=== PATIENT | female | born 1960 | race Caucasian/White ===

== ENCOUNTER 2016-05-11 16:57 | Emergency (ER) | payer BC ==
[2016-05-11] MEDS ORDERED: Sulfamethox/Trimethoprim DS 800/160* TAB PO ONE (19:27)
[2016-05-11 19:39] VITALS: BP 153/87
--- NOTE | 2016-05-11 19:43 | UC ---
Skin Complaint HPI - HPI Summary HPI Summary: pt presents with c/o tender "sore" on right inner labia - History of Current Complaint Chief Complaint: UCSkin Time Seen by Provider: 05/11/16 18:50 Stated Complaint: PERSONAL Hx Obtained From: Patient ?: No Onset/Duration: Gradual Onset, Lasting Days Skin Exposure Onset/Duration: Days Ago Timing: Constant Onset Severity: Mild Current Severity: Mild Location: Discrete Character: Redness, Raised, Painful Aggravating: Touch Alleviating: Nothing Associated Signs & Symptoms: Positive: Tenderness - Allergy/Home Medications Allergies/Adverse Reactions: Allergies Allergy/AdvReac Type Severity Reaction Status Date / Time C[facility]lor [[facility]] Allergy Rash Verified 05/11/16 18:40 Review of Systems Constitutional: Negative Skin: Other - tenderness, swelling, abscess Eyes: Negative ENT: Negative Respiratory: Negative Cardiovascular: Negative Gastrointestinal: Negative Genitourinary: Negative Motor: Negative Neurovascular: Negative Musculoskeletal: Negative Neurological: Negative Psychological: Negative All Other Systems Reviewed And Are Negative: Yes PMH/Surg Hx/FS Hx/Imm Hx Previously Healthy: Yes - Surgical History Surgical History: Yes Surgery Procedure, Year, and Place: trach as a child - Family History Known Family History: Positive: Cardiac Disease - Social History Lives: With Family Alcohol Use: Rare Substance Use Type: None Smoking Status (MU): Never Smoked Tobacco Physical Exam Triage Information Reviewed: Yes Appearance: Well-Appearing Vital Signs: Initial Vital Signs Temp 98.6 F 05/11/16 18:41 Pulse 74 05/11/16 18:41 Resp 18 05/11/16 18:41 BP 153/87 05/11/16 18:41 Pulse Ox 100 05/11/16 18:41 Eye Exam: Normal ENT Exam: Normal Respiratory Exam: Other Respiratory: Positive: No respiratory distress Abdomen Description: Positive: Other: - small, nickel size abscess with "white head" that is firm and not able to drain. Musculoskeletal Exam: Normal Neurological Exam: Normal Psychological Exam: Normal Skin Exam: Other - abscess right inner labia, nickel size, no drainage, not flucuant, tneder Course/Dx - Differential Diagnoses - Skin Complaint Differential Diagnoses: Abscess, MRSA - Diagnoses Provider Diagnoses: abscess Discharge - Discharge Plan Condition: Stable Disposition: HOME Prescriptions: Sulfamethox/Trimethoprim DS* [Bactrim DS 800/160 TAB*] 1 tab PO Q12H #14 tab Patient Education Materials: Abscess (ED) Referrals: [facility]ICIAN REFERRAL [Outside] No Primary Care Phys,NOPCP [Primary Care Provider] - Additional Instructions: Please follow up with your PCP or return to clinic Addendum entered and electronically signed by Jessica STEIN,Yulia Desir NP 19:45: Addendum Addendum: I spoke to the patient about placing warm pack to the affected area. Additionally, I spoke to the patient about her elevated blood pressure at today' s visit. The patient indicated that she does not like to go to the "doctors' and get very nervous. She states that when she checks her blood pressure at home it is in normal range. Addendum entered and electronically signed by Ron Gan MD 05/18/16 22:11: UC Addendum Addendum: Document reviewed. Addendum entered and electronically signed by Ron Gan MD 05/23/16 11:50: Addendum Addendum: I reviewed the document and agree with the management.
== END 2016-05-11 19:41 | disposition home or self-care (01) ==
LOC: UCCORT 16:57
DX: N76.4 Abscess of vulva (principal); Z88.1 Allergy status to other antibiotic agents
CPT/HCPCS: 99212; A9270-GY; G0463

== ENCOUNTER 2016-06-13 09:21 | Emergency (ER) | payer BC ==
[2016-06-13 11:07] VITALS: BP 145/74
--- NOTE | 2016-06-13 11:53 | UC ---
Skin Complaint HPI - HPI Summary HPI Summary: patient has what she thought were bug bites on the lower right pannus, they are now red and indurated. she did apply a hot compress and the one on the right began to drain. - History of Current Complaint Chief Complaint: UCSkin Time Seen by Provider: 06/13/16 11:34 Stated Complaint: BUG BITES ON ABD Hx Obtained From: Patient ?: No Onset/Duration: Sudden Onset, Lasting Days Skin Exposure Onset/Duration: Days Ago Timing: Constant Onset Severity: Mild Current Severity: Moderate Location: Discrete Character: Swelling, Pruritus, Redness Aggravating: Clothing Alleviating: Nothing - Allergy/Home Medications Allergies/Adverse Reactions: Allergies Allergy/AdvReac Type Severity Reaction Status Date / Time Cefaclor [From [facility]] Allergy Rash Verified 06/13/16 11:04 Home Medications: Home Medications Diphenhydramine-Zinc Acetate [Benadryl Extra Strength 2-0.1 % CREAM] 1 cre EX DAILY PRN 06/13/16 [History Confirmed 06/13/16] Review of Systems Constitutional: Negative Skin: Other - 2 separate areas of induration slightly bigger than a quarter, right one is draining and left on pustule noted Eyes: Negative ENT: Negative Respiratory: Negative Cardiovascular: Negative Gastrointestinal: Negative Genitourinary: Negative Motor: Negative Neurovascular: Negative Musculoskeletal: Negative Neurological: Negative Psychological: Negative All Other Systems Reviewed And Are Negative: Yes PMH/Surg Hx/FS Hx/Imm Hx Previously Healthy: Yes - Surgical History Surgical History: Yes Surgery Procedure, Year, and Place: trach as a child - Family History Known Family History: Positive: Cardiac Disease - Social History Alcohol Use: Occasionally Substance Use Type: None Smoking Status (MU): Never Smoked Tobacco Physical Exam Triage Information Reviewed: Yes Appearance: Well-Appearing, Well-Nourished, Pain Distress Vital Signs: Initial Vital Signs Temp 98.7 F 06/13/16 10:58 Pulse 68 06/13/16 10:58 Resp 12 06/13/16 10:58 BP 145/74 06/13/16 10:58 Pulse Ox 100 06/13/16 10:58 Vital Signs Reviewed: Yes Eye Exam: Normal Eyes: Positive: Conjunctiva Clear ENT Exam: Normal ENT: Positive: Hearing grossly normal, Pharynx normal, TMs normal Dental Exam: Normal Neck exam: Normal Neck: Positive: Supple, Nontender, No Lymphadenopathy Respiratory Exam: Normal Respiratory: Positive: Chest non-tender, Lungs clear, Normal breath sounds Cardiovascular Exam: Normal Cardiovascular: Positive: RRR, No Murmur, Pulses Normal Abdominal Exam: Normal Abdomen Description: Positive: Nontender, No Organomegaly, Soft Bowel Sounds: Positive: Present Musculoskeletal Exam: Normal Musculoskeletal: Positive: Strength Intact, ROM Intact, No Edema Neurological Exam: Normal Neurological: Positive: Alert, Muscle Tone Normal Psychological Exam: Normal Skin: Positive: significant lesion(s) - 2 areas of induration with right one draining, and left on has a pustule Course/Dx - Course Course Of Treatment: hx obtained, exam performed, meds reviewed, talked with patient about i and d, patient would like to apply warm compresses to the area to allow them to drain ABX prescribed. - Differential Diagnoses - Skin Complaint Differential Diagnoses: Abscess, Cellulitis, Contact Dermatitis, Tick Born Illness, Urticaria - Diagnoses Provider Diagnoses: abscess x 2 on abdomen Discharge - Discharge Plan Condition: Stable Disposition: HOME Prescriptions: Sulfamethox/Trimethoprim DS* [Bactrim DS 800/160 TAB*] 1 tab PO BID #14 tab Patient Education Materials: Abscess (ED), Warm Compress or Soak (ED) Additional Instructions: 4-5 hot compresses to the area daily, take the antibiotics as prescribed. Follow up with any increase in pain or redness, keep the area covere and clean especially while draining.
== END 2016-06-13 12:09 | disposition home or self-care (01) ==
LOC: UCCORT 09:21
DX: L02.211 Cutaneous abscess of abdominal wall (principal); Z88.1 Allergy status to other antibiotic agents
CPT/HCPCS: 99212; G0463

== ENCOUNTER 2017-03-25 15:39 | Emergency (ER) | payer BC ==
--- NOTE | 2017-03-25 16:18 | UC ---
Hand/Wrist HPI - History Of Current Complaint Chief Complaint: UCUpperExtremity Stated Complaint: RIGHT THUMB INJURY Time Seen by Provider: 03/25/17 16:17 Pain Intensity: 2 - Allergies/Home Medications Allergies/Adverse Reactions: Allergies Allergy/AdvReac Type Severity Reaction Status Date / Time cefaclor [From [facility]] Allergy Rash Verified 03/25/17 16:03 Home Medications: Home Medications Ibuprofen 400 mg PO 03/25/17 [History] PMH/Surg Hx/FS Hx/Imm Hx - Surgical History Surgical History: Yes Surgery Procedure, Year, and Place: trach as a child - Family History Known Family History: Positive: Cardiac Disease - Social History Alcohol Use: Rare Substance Use Type: None Smoking Status (MU): Never Smoked Tobacco Physical Exam Vital Signs: Initial Vital Signs Temp 98.3 F 03/25/17 15:59 Pulse 85 03/25/17 15:59 Resp 18 03/25/17 15:59 BP 169/79 03/25/17 15:59 Pulse Ox 100 03/25/17 15:59 Discharge - Discharge Plan Referrals: Ofelia Barillas PA [Primary Care Provider] -
[2017-03-25] MEDS ORDERED: Ibuprofen TAB* 200 MG PO ONE (16:24)
--- NOTE | 2017-03-25 16:28 | RAD ---
HISTORY: Pain with extension, repetitive work COMPARISONS: None VIEWS: 3, Frontal, lateral, and oblique views of the first digit of the right hand FINDINGS: BONE DENSITY: Normal. BONES: There is no displaced fracture. JOINTS: There is osteoarthritis of the first CMC, MCP, and interphalangeal joint. ALIGNMENT: There is no dislocation. SOFT TISSUES: Unremarkable. OTHER FINDINGS: None. IMPRESSION: OSTEOARTHRITIS. NO ACUTE OSSEOUS INJURY. IF SYMPTOMS PERSIST, RECOMMEND REPEAT IMAGING.
--- NOTE | 2017-03-25 16:31 | UC ---
Hand/Wrist HPI - HPI Summary HPI Summary: pt presents with 3-4 weeks right thumb pain. 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 Pt states most sx improved, but continues to have pain in thumb. Pt states at time ip joint gets "stuck" in flexion and has to "force" it straight. Pt states feels stiff. Occasional pain in thenar eminence. no direct trauma. Pt without past h/o of thumb surgery. No relief with ice. No elbow or wrist pain. mild relief with Motrin. None today Pt's medications reviewed this visit - History Of Current Complaint Chief Complaint: UCUpperExtremity Stated Complaint: RIGHT THUMB INJURY Time Seen by Provider: 03/25/17 16:17 Hx Obtained From: Patient ?: No - post men Onset/Duration: Gradual Onset Severity Initially: Mild Severity Currently: Mild Pain Intensity: 2 Pain Scale Used: 0-10 Numeric Character Of Pain: Spasmodic, Stiffness Aggravating Factor(s): Movement, Flexion Alleviating Factor(s): Rest Associated Signs And Symptoms: Negative: Weakness, Numbness/Tingling - Allergies/Home Medications Allergies/Adverse Reactions: Allergies Allergy/AdvReac Type Severity Reaction Status Date / Time cefaclor [From [facility]] Allergy Rash Verified 03/25/17 16:03 Home Medications: Home Medications Ibuprofen 400 mg PO 03/25/17 [History] PMH/Surg Hx/FS Hx/Imm Hx Previously Healthy: Yes - Surgical History Surgical History: Yes Surgery Procedure, Year, and Place: trach as a child - Family History Known Family History: Positive: Cardiac Disease - Social History Occupation: Employed Full-time Lives: With Family Alcohol Use: Rare Substance Use Type: None Smoking Status (MU): Never Smoked Tobacco Review of Systems Constitutional: Negative Skin: Negative Motor: Other - right thumb pain IP joint All Other Systems Reviewed And Are Negative: Yes Physical Exam Triage Information Reviewed: Yes Appearance: Well-Appearing, No Pain Distress, Well-Nourished Vital Signs: Initial Vital Signs Temp 98.3 F 03/25/17 15:59 Pulse 85 03/25/17 15:59 Resp 18 03/25/17 15:59 BP 169/79 03/25/17 15:59 Pulse Ox 100 03/25/17 15:59 Vital Signs Reviewed: Yes ENT: Positive: Hearing grossly normal Neck: Positive: Supple Respiratory: Positive: No respiratory distress, No accessory muscle use Cardiovascular: Positive: Other: - 2+ radial, 2+ ulnar CBT < 2 sec Musculoskeletal: Positive: Other: - + flex/ext elbow + pronate/supinate + flex/ ext wrist + discomfort wtih palpation thenar eminence and lateral aspect of IP joint + discomfot with opponens and any attempt at flexion of IP mild discomfort MCP joint no edema, no ecchymosis Neurological: Positive: Other: - + gross sensation throughout Psychological Exam: Normal Skin Exam: Normal Diagnostics - Radiology No standard instances Radiology Interpretation Completed By: Radiologist - Attending Doctor: Priscilla Bennett ([facility]) Bacon Stringer: Cisco Finley ([id number]) Conveyor Attendant: NUANCE (NUANCE) Report Date: 03/25/2017 16:06:00 Report Status: Final Begin of Report Content Patient Name: NATALIE SEQUEIRA Medical Record#: [id number] Ordering Physician: Carmella Bro MD Acct.#: [id number] : 1960 Age: 56 Sex: F Location: [facility] Exam Date: 03/25/17 1606 ADM Status: PRE ER Order Information: THUMB RIGHT Accession Number: [id number] CPT: 68716 HISTORY : Pain with extension, repetitive work COMPARISONS: None VIEWS: 3, Frontal, lateral, and oblique views of the first digit of the right hand FINDINGS: BONE DENSITY: Normal. BONES: There is no displaced fracture. JOINTS: There is osteoarthritis of the first CMC, MCP, and interphalangeal joint. ALIGNMENT: There is no dislocation. SOFT TISSUES: Unremarkable. OTHER FINDINGS: None. IMPRESSION: OSTEOARTHRITIS. NO ACUTE OSSEOUS INJURY. IF SYMPTOMS PERSIST, RECOMMEND REPEAT IMAGING. <Electronically signed by Cisco Finley MD in OV> 03/25/171623 Dictated By: Cisco Finley MD Dictated Date/Time: 03/25/171623 Transcribed Date/Time: 03/25/171623 Copy to: Hand/Wrist Course/Dx - Course Course Of Treatment: Pt with discomfort right thumb with flexion and along IP joint. Pt states gets "stuck" in flexion at IP. will check xray. thumb spica. analgesia. ortho-hand. pt comfortable and in agreement with plan - Differential Dx/Diagnosis Provider Diagnoses: right thumb pain Discharge - Discharge Plan Condition: Stable Disposition: HOME Patient Education Materials: Trigger Finger (ED) Forms: *Gen. Provider Communication Referrals: Ofelia Barillas PA [Primary Care Provider] - Additional Instructions: -wear splint for comfort and support as much as possible - alternate ibuprofen (Advil, Motrin) 600mg and tylenol every 3 hours for pain. Take with food. do NOT take for more than 4-5 days - Contact the orthopedic office to schedule a follow-up appointment with the hand specialist - avoid repetition over use or trauma to your thumb
[2017-03-25 16:51] VITALS: BP 169/79
== END 2017-03-25 16:46 | disposition home or self-care (01) ==
LOC: UCCORT 15:39
DX: M79.644 Pain in right finger(s) (principal); W19.XXXA Unspecified fall, initial encounter; Y93.9 Activity, unspecified; Y92.9 Unspecified place or not applicable; Y99.9 Unspecified external cause status
CPT/HCPCS: 99213; A9270-GY; G0463

== ENCOUNTER 2017-06-24 16:08 | Emergency (ER) | payer BC ==
--- NOTE | 2017-06-24 16:21 | UC ---
Skin Complaint HPI - HPI Summary HPI Summary: 56 yo WF presents with rash to back of lower legs noticed 2 days ago. She tells me that 3 days ago she was walking on her property ([place] area[place] and sitting on her front steps. Later that night noticed some burning sensations to the back of her legs. The next day developed a red rash. Yesterday started blistering. Has been taking benadryl with moderate relief. - History of Current Complaint Time Seen by Provider: 06/24/17 16:21 Stated Complaint: SKIN COMPLAINT Hx Obtained From: Patient Onset/Duration: Gradual Onset Onset Severity: Mild Current Severity: Mild Pain Intensity: 3 Pain Scale Used: 0-10 Numeric - Allergy/Home Medications Allergies/Adverse Reactions: Allergies Allergy/AdvReac Type Severity Reaction Status Date / Time cefaclor [From [facility]] Allergy Rash Verified 06/24/17 16:23 Review of Systems Constitutional: Negative Skin: Rash Respiratory: Negative Cardiovascular: Negative Neurovascular: Negative Musculoskeletal: Negative Neurological: Negative Psychological: Negative All Other Systems Reviewed And Are Negative: Yes PMH/Surg Hx/FS Hx/Imm Hx - Additional Past Medical History Additional PMH: None Previously Healthy: Yes - Surgical History Surgical History: Yes Surgery Procedure, Year, and Place: trach as a child - Family History Known Family History: Positive: Cardiac Disease - Social History Occupation: Employed Full-time Lives: With Family Alcohol Use: Rare Substance Use Type: None Smoking Status (MU): Never Smoked Tobacco Physical Exam - Summary Physical Exam Summary: GENERAL: NAD. WDWN. No pain distress. SKIN: B/L lower calves: ~5.0cm areas of moderate erythema and scattered blisters 1-5mm in size. Mild TTP. No streaking, drainage, bleeding, or open sores. NECK: Supple. Nontender. No lymphadenopathy. CHEST: No accessory muscle use. Breathing comfortably and in no distress. CV: RRR. Without m/r/g. NEURO: Alert. CN II-XII grossly intact. PSYCH: Age appropriate behavior. Triage Information Reviewed: Yes Course/Dx - Course Course Of Treatment: Suspect poison soco vs contact dermatitis. Continue with benadryl. Rx for steroid cream and short course of po prednisone. - Diagnoses Provider Diagnoses: Poison soco lower legs Discharge - Sign-Out/Discharge Documenting (check all that apply): Discharge/Admit/Transfer - Discharge Plan Condition: Stable Disposition: HOME Prescriptions: predniSONE TAB* [Deltasone TAB*] 50 mg PO DAILY #5 tab Triamcinolone 0.1% CREAM(NF) [Kenalog Cream 0.1%(NF)] 1 applic TOPICAL BID #1 tube Patient Education Materials: Poison Soco (ED) Forms: *Work Release Referrals: No Primary Care Phys,NOPCP [Primary Care Provider] - Additional Instructions: If you develop a fever, shortness of breath, chest pain, new or worsening symptoms - please call your PCP or go to the ED. Your blood pressure was high at todays visit. Please see your primary provider within 4 weeks for recheck and re-evaluation. 1) Please take daily benadryl to help with the itching and swelling - Billing Disposition and Condition Condition: STABLE Disposition: HOME
[2017-06-24 16:26] VITALS: BP 160/83
== END 2017-06-24 16:49 | disposition home or self-care (01) ==
LOC: UCCORT 16:08
DX: L23.7 Allergic contact dermatitis due to plants, except food (principal); Z88.3 Allergy status to other anti-infective agents
CPT/HCPCS: 99212; G0463

== ENCOUNTER 2017-10-11 20:11 | Emergency (ER) | payer BC ==
[2017-10-11 20:31] VITALS: BP 161/85
--- NOTE | 2017-10-11 20:34 | UC ---
Upper Extremity HPI - HPI Summary HPI Summary: 56 year old female presents with right hand pain, swelling, and bruising s/p fall last night. States she was carrying her grandson and tripped on his walker falling forward into the play swing. She is not exactly sure the mechanism of injury as she was concentrating on keeping her grandson for being injured. Reports decreased ROM d/t swelling. Denies numbness or tingling. - History of Current Complaint Stated Complaint: RIGHT HAND INJURY S/P FALL Time Seen by Provider: 10/11/17 20:25 Hx Obtained From: Patient ?: No Onset/Duration: Sudden Onset Severity Initially: Mild Severity Currently: Mild Location Of Pain: Is Discrete @ - right ring finger and over 4th metacarpal Character: Throbbing Aggravating Factor(s): Movement, Lifting Alleviating Factor(s): Ice, OTC Meds Associated Signs And Symptoms: Positive: Swelling, Bruising. Negative: Redness , Weakness, Numbness/Tingling - Allergies/Home Medications Allergies/Adverse Reactions: Allergies Allergy/AdvReac Type Severity Reaction Status Date / Time cefaclor [From [facility]] Allergy Rash Verified 10/11/17 20:24 Home Medications: Home Medications Ibuprofen [Motrin Ib] 400 mg PO Q6H PRN 10/11/17 [History Confirmed 10/11/17] PMH/Surg Hx/FS Hx/Imm Hx Endocrine History: Diabetes - Reports possible pre-diabetes - Surgical History Surgical History: Yes Surgery Procedure, Year, and Place: trach as a child - Family History Known Family History: Positive: Cardiac Disease - Social History Occupation: Employed Full-time Lives: With Family Alcohol Use: Rare Substance Use Type: None Smoking Status (MU): Never Smoked Tobacco Review of Systems Constitutional: Negative Skin: Bruising Motor: Decreased ROM - d/t swelling Neurovascular: Negative Musculoskeletal: Edema, Other: - pain right hand Is Patient Immunocompromised?: No All Other Systems Reviewed And Are Negative: Yes Physical Exam Triage Information Reviewed: Yes Appearance: Well-Appearing, No Pain Distress, Obese Vital Signs Reviewed: Yes Respiratory: Positive: No respiratory distress Cardiovascular: Positive: Pulses Normal, Brisk Capillary Refill Musculoskeletal: Positive: ROM Limited @ - Righ ring and little fingers d/t swelling, Edema @ - Right ring and little finger, dorsal right hand, Other: - Tenderness over the proximal phalanx right ring finger. No crepitus or obvious deformity. Neurological: Positive: Alert, Other: - Sensation intact distally Skin: Positive: Other - Ecchymosis to dorsal and palmar aspect of the lateral right hand, ring finger especially at the PIP. Procedures - Splinting Right Upper Extremity Hand-Made Type: orthoglass Splint: ulnar - gutter Pre-Proc Neuro Vasc Exam: normal Post-Proc Neuro Vasc Exam: normal Diagnostics - Radiology No standard instances Xray Interpretation: Positive (See Comments) - Preliminary reading by myself and reviewed with Dr. Eaton. Non-displaced oblique fracture of proximal phalanx right ring finger. Radiology Interpretation Completed By: ED Physician Upper Extremity Course/Dx - Course Course Of Treatment: 56 year old female with right hand pain, swelling, and ecchymosis s/p fall. Tenderness over proximal phalanx right ring finger with notable ecchymosis especially at PIP. Preliminary reading of right hand X-ray by myself is non-displaced oblique fracture of the proximal phalanx right ring finger. X-ray reviewed with Dr. Eaton who agrees with reading. Patient was placed in ulnar gutter splint using Orthoglass and EMILY wrap. Recommend routine ortho care including rest, ice, and elevation. OTC analgesics for pain control. Referral made to Dr. Flores, orthopedic surgery, for follow up as patient requests to stay locally. Warning symptoms reviewed that would require immediate medical attention. Verbalizes understanding and agrees with POC. - Differential Dx/Diagnosis Differential Diagnosis/HQI/PQRI: Contusion, Fracture (Closed), Strain Provider Diagnoses: Non-displaced oblique fracture of proximal phalanx right ring finger, elevated blood pressure reading Discharge - Sign-Out/Discharge Documenting (check all that apply): Patient Departure All imaging exams completed and their final reports reviewed: No - Discharge Plan Condition: Stable Disposition: HOME Patient Education Materials: Finger Fracture (ED) Forms: *Work Release Referrals: No Primary Care Phys,NOPCP [Primary Care Provider] - Matt Flores MD [Medical Doctor] - 3 Days (Call Friday for follow up appointment.) Additional Instructions: Your X-ray in the clinic today looks suspicious for an non-displaced oblique fracture of the first bone of the ring finger. The X-ray will be reviewed by radiology tomorrow and we will contact you if there is a finding that will change your treatment plan. Leave the splint in place at all times. Be sure to keep it dry. Rest the hand as much as possible. You can do basic activities but you should avoid any heavy lift or strenuous activities. Apply ice for 15-20 minutes 3-4 times a day for next couple of days. Keep the arm elevated at the level of your heart to help reduce swelling. Use over the counter acetaminophen (Tylenol) or ibuprofen (Advil, Motrin) according to directions as needed for pain. Call Dr. Flores, orthopedic surgery, on Friday to schedule follow up. Seek immediate medical attention if you have increased pain not controlled by pain medications, develop any numbness or tingling, the hand/finger becomes pale or blue in color, or any worsening of symptoms. Your blood pressure in the clinic today was elevated. You should schedule an appointment with your primary care provider within the next week to have this rechecked. - Billing Disposition and Condition Condition: STABLE Disposition: Home
--- NOTE | 2017-10-12 12:33 | RAD ---
INDICATION: Pain and swelling at the third and fourth metacarpal bones after a fall COMPARISON: None. TECHNIQUE: 4 views of the right hand were obtained. FINDINGS: The adequately corticated bones are in normal alignment. No significant focal osseous abnormality or fracture is seen. Joint spaces appear maintained. IMPRESSION: No radiographically apparent fracture or dislocation is identified. If the patient's symptoms persist, follow-up imaging is recommended. R2
--- NOTE | 2017-10-12 13:16 | UC ---
Discharge - Sign-Out/Discharge Documenting (check all that apply): Post-Discharge Follow Up All imaging exams completed and their final reports reviewed: Yes - Discharge Plan Condition: Stable Disposition: HOME Patient Education Materials: Finger Fracture (ED) Forms: *Work Release Referrals: Matt Flores MD [Medical Doctor] - 3 Days (Call Friday for follow up appointment.) No Primary Care Phys,NOPCP [Primary Care Provider] - Additional Instructions: Your X-ray in the clinic today looks suspicious for an non-displaced oblique fracture of the first bone of the ring finger. The X-ray will be reviewed by radiology tomorrow and we will contact you if there is a finding that will change your treatment plan. Leave the splint in place at all times. Be sure to keep it dry. Rest the hand as much as possible. You can do basic activities but you should avoid any heavy lift or strenuous activities. Apply ice for 15-20 minutes 3-4 times a day for next couple of days. Keep the arm elevated at the level of your heart to help reduce swelling. Use over the counter acetaminophen (Tylenol) or ibuprofen (Advil, Motrin) according to directions as needed for pain. Call Dr. Flores, orthopedic surgery, on Friday to schedule follow up. Seek immediate medical attention if you have increased pain not controlled by pain medications, develop any numbness or tingling, the hand/finger becomes pale or blue in color, or any worsening of symptoms. Your blood pressure in the clinic today was elevated. You should schedule an appointment with your primary care provider within the next week to have this rechecked. - Billing Disposition and Condition Condition: STABLE Disposition: Home
== END 2017-10-11 21:26 | disposition home or self-care (01) ==
LOC: UCCORT 20:11
DX: S62.644A Nondisplaced fracture of proximal phalanx of right ring finger, initial encounter for closed fracture (principal); W18.09XA Striking against other object with subsequent fall, initial encounter; Y93.01 Activity, walking, marching and hiking; Y92.009 Unspecified place in unspecified non-institutional (private) residence as the place of occurrence of the external cause; Z88.1 Allergy status to other antibiotic agents; E11.9 Type 2 diabetes mellitus without complications; R03.0 Elevated blood-pressure reading, without diagnosis of hypertension
CPT/HCPCS: 26720; 99211; G0463

== ENCOUNTER 2018-04-27 17:42 | Emergency (ER) | payer BC ==
[2018-04-27 18:30] VITALS: BP 167/96
--- NOTE | 2018-04-27 18:52 | UC ---
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 - History of Current Complaint Chief Complaint: U[employer]kin Time Seen by Provider: 04/27/18 18:29 Stated Complaint: SKIN CONCERN Hx Obtained From: Patient ?: No Onset/Duration: Sudden Onset Skin Exposure Onset/Duration: Days Ago - Last evening had exposure to bedbugs Timing: Constant Onset Severity: Moderate Current Severity: Moderate Pain Intensity: 7 Location: Diffuse, Other - 4 spots on her right forearm. Character: Pruritus, Redness, Raised, Painful Aggravating Factor(s): Other - Bedbugs Alleviating Factor(s): Antihistamines - Patient took Benadryl however without to much improvement. Associated Signs & Symptoms: Positive: Negative Related History: Insect Bite/Sting - Allergy/Home Medications Allergies/Adverse Reactions: Allergies Allergy/AdvReac Type Severity Reaction Status Date / Time cefaclor [From [facility]] Allergy Rash Verified 04/27/18 18:23 Home Medications: Home Medications diphenhydrAMINE HCl [Benadryl Allergy 25 MG CAP] 25 mg PO Q6H PRN 04/27/18 [ History Confirmed 04/27/18] PMH/Surg Hx/FS Hx/Imm Hx Previously Healthy: Yes - Surgical History Surgical History: Yes Surgery Procedure, Year, and Place: trach as a child - Family History Known Family History: Positive: Cardiac Disease - Social History Alcohol Use: Rare Substance Use Type: None Smoking Status (MU): Never Smoked Tobacco Review of Systems All Other Systems Reviewed And Are Negative: Yes Constitutional: Positive: Negative Skin: Positive: Other - For bug bites to her right lower forearm Eyes: Positive: Negative Respiratory: Positive: Negative Cardiovascular: Positive: Negative Gastrointestinal: Positive: Negative Genitourinary: Positive: Negative Motor: Positive: Negative Neurovascular: Positive: Negative Neurological: Positive: Negative Psychological: Positive: Negative Is Patient Immunocompromised?: No Physical Exam Triage Information Reviewed: Yes Appearance: Well-Appearing, No Pain Distress, Well-Nourished Vital Signs: Initial Vital Signs Temp 98.6 F 04/27/18 18:24 Pulse 104 04/27/18 18:24 Resp 18 04/27/18 18:24 BP 167/96 04/27/18 18:24 Pulse Ox 100 04/27/18 18:24 Vital Signs Reviewed: Yes Eye Exam: Normal Musculoskeletal Exam: Normal Neurological Exam: Normal Psychological Exam: Normal Skin: Positive: Other - Sore areas on her right lower forearm which appear to be insect bites and stings with a local red reaction, no streaking. Course/Dx - Course Course Of Treatment: Patient has been comfortable here. The areas appear to be only a local skin reaction to the bedbug bites and not infection or cellulitis. - Differential Diagnoses - Skin Complaint Differential Diagnoses: Local Allergic Reaction - Diagnoses Provider Diagnosis: Bed bug bite Discharge - Sign-Out/Discharge Documenting (check all that apply): Patient Departure All imaging exams completed and their final reports reviewed: No Studies - Discharge Plan Condition: Fair Disposition: HOME Prescriptions: predniSONE [Prednisone 20 MG TAB] 40 mg PO DAILY 3 Days #6 tablet Patient Education Materials: Insect Bite or Sting (ED) Referrals: No Primary Care Phys,NOPCP [Primary Care Provider] - Additional Instructions: Apply ice to the affected area. May continue to take Benadryl 25-50 mg by mouth every 6 hours as needed for itching or pain. Take the prednisone with food. Definite follow-up later in the week if the area appears it is getting infected with red streaks, fever or chills, or pus drainage. - Billing Disposition and Condition Condition: FAIR Disposition: Home - Attestation Statements Provider Attestation: Per institutional requirements, I have reviewed the chart, however, I was not consulted specifically or made aware of this patient by the midlevel provider. I did not personally evaluate, interact with , or disposition this patient.
== END 2018-04-27 19:00 | disposition home or self-care (01) ==
LOC: UCCORT 17:42
DX: S50.861A Insect bite (nonvenomous) of right forearm, initial encounter (principal); Z88.1 Allergy status to other antibiotic agents; W57.XXXA Bitten or stung by nonvenomous insect and other nonvenomous arthropods, initial encounter; Y92.9 Unspecified place or not applicable
CPT/HCPCS: 99212; G0463